=== PATIENT | male | born 1955 | race Caucasian/White ===

== ENCOUNTER 2018-06-17 18:48 | Inpatient (IN) | payer BC ==
[~2018-06-17] VITALS: Ht 182.9 cm; Wt 108.5 kg
[2018-06-17] MEDS ORDERED: ACETAMINOPHEN 500 MG TABLET PO ONE (19:00)
[2018-06-17] MEDS ORDERED: SODIUM CHLORIDE FLUSH 10ML SYR IVF ONE (19:00)
[2018-06-17] MEDS ORDERED: ACETAMINOPHEN 500 MG TABLET ONE (19:16)
[2018-06-17] MEDS ORDERED: SODIUM CHLORIDE 0.9% 1,000ML IVBOLUS ONE ×2 (19:30→21:30)
[2018-06-17 19:36] LABS: BASOPHILS # (AUTO) 0.01 x10^3/uL (0-0.1); BASOPHILS % (AUTO) 0 % (0-1); EOSINOPHILS # (AUTO) 0.02 x10^3/uL (0-0.4); EOSINOPHILS % (AUTO) 0 % (1-7); LYMPHOCYTES # (AUTO) 0.25 x10^3/uL (1-3.4); LYMPHOCYTES % (AUTO) 3 % (22-44); MD NO; MEAN CORPUSCULAR HEMOGLOBIN 30.1 pg (27.5-34.5); MEAN CORPUSCULAR HGB CONC 34.1 g/dL (33.2-36.2); MEAN CORPUSCULAR VOLUME 88.3 fL (81-97); MEAN PLATELET VOLUME 8.3 fL (7.4-10.4); MONOCYTES # (AUTO) 0.61 x10^3/uL (0.2-0.8); MONOCYTES % (AUTO) 6 % (2-9); NEUTROPHILS # (AUTO) 9.08 x10^3/uL (1.8-6.8); NEUTROPHILS % (AUTO) 91 % (42-75); PLATELET COUNT 249 x10^3/uL (130-400); RED BLOOD COUNT 4.92 x10^6/uL (4.38-5.82); RED CELL DISTRIBUTION WIDTH 13.5 % (9.4-14.8)
[2018-06-17 19:44] LABS: ALBUMIN 3.7 g/dL (3.4-5.0); ANION GAP 11 mmol/L (5-15); CHLORIDE 107 mmol/L (98-107)
[2018-06-17 19:48] LABS: ALANINE AMINOTRANSFERASE 32 U/L (12-78); ALKALINE PHOSPHATASE 57 U/L (45-117); BILIRUBIN,TOTAL 0.6 mg/dL (0.2-1.0); CREATININE 1.62 mg/dL (0.7-1.3)
[2018-06-17] MEDS ORDERED: ONDANSETRON 2MG/ML, 2ML ONE (20:22)
[2018-06-17] MEDS ORDERED: MORPHINE SULFATE 4 MG/ML, 1ML ONE (20:22)
[2018-06-17] MEDS ORDERED: ONDANSETRON 2MG/ML, 2ML IVPush ONE (20:30)
[2018-06-17] MEDS ORDERED: MORPHINE SULFATE 4 MG/ML, 1ML IVPush ONE (20:30)
[2018-06-17 20:42] LABS: RAPID INFLUENZA A Negative (Negative); RAPID INFLUENZA B Negative (Negative)
[2018-06-17 21:24] LABS: MICROSCOPIC INDICATED
[2018-06-17] MEDS ORDERED: CEFTRIAXONE PMX 1GM/50ML 50 ML IV ONE (21:30)
[2018-06-17] MEDS ORDERED: CEFTRIAXONE PMX 1GM/50ML 50 ML ONE (21:32)
[2018-06-17 21:37] LABS: CULTURE INDICATED? NO
[2018-06-17] MEDS ORDERED: HYDR-3245 PO (21:43)
[2018-06-17] MEDS ORDERED: ONDA4TAB7 PO (21:43)
[2018-06-17] MEDS ORDERED: METH750T87 PO (21:43)
[2018-06-17] MEDS ORDERED: OMEP10CA4 PO (21:43)
[2018-06-17] MEDS ORDERED: CEPH-376 PO (21:43)
[2018-06-17] MEDS ORDERED: TELM40TA PO (21:43)
[2018-06-17] MEDS ORDERED: FEXO1TAB29 PO (21:43)
[2018-06-17] MEDS ORDERED: METHOCARBAMOL 1,000 MG in DEXTROSE 5% 100 ML IV ONE (23:00)
[2018-06-17 23:11] VITALS: BP 126/71
[2018-06-18] MEDS ORDERED: LORATADINE/PSE 5/120MG TAB.ER.12H PO PRN (00:30)
[2018-06-18] MEDS ORDERED: LIDODERM 5% PATCH TD PRN (00:30)
[2018-06-18] MEDS ORDERED: hydrALAzine 20 MG/ML, 1ML IVPush PRN (00:30)
[2018-06-18] MEDS ORDERED: ONDANSETRON 2MG/ML, 2ML IVPush PRN (00:30)
[2018-06-18] MEDS: SODIUM CHLORIDE 0.9% 1,000 ML IV SCH ×3 (00:49→19:40)
[2018-06-18 01:45] VITALS: BP 121/86
[2018-06-18] MEDS: HEPARIN 5,000 UNITS/ML, 1ML SQ SCH ×3 (01:48→16:16)
[2018-06-18] MEDS: HYDROcodone/APAP 5/325 TABLET PO PRN ×4 (02:32→20:39)
[2018-06-18 07:50] VITALS: BP 117/67
[2018-06-18] MEDS: VALSARTAN 80 MG TABLET PO SCH (08:55)
[2018-06-18] MEDS: CEFTRIAXONE PMX 1GM/50ML 50 ML IV SCH ×2 (08:55→21:30)
[2018-06-18] MEDS: AZITHROMYCIN 500 MG in SODIUM CHLORIDE 0.9% 250 ML IV SCH (09:59)
[2018-06-18 13:58] VITALS: BP 108/67
[2018-06-18] MEDS: METHOCARBAMOL 750 MG TABLET PO PRN ×2 (14:48→20:38)
[2018-06-18] MEDS: SCOPOLAMINE PATCH, 1.5MG PATCH.TD72 TD SCH (15:00)
[2018-06-18] MEDS: morphine SULFATE 10 MG/ML, 1ML IVPush PRN (16:16)
[2018-06-18 19:06] VITALS: BP 146/75
[2018-06-18 21:36] VITALS: BP 108/65
[2018-06-18] MEDS ORDERED: ACETAMINOPHEN 500 MG TABLET PO ONE (22:00)
[2018-06-19] MEDS: HEPARIN 5,000 UNITS/ML, 1ML SQ SCH ×3 (00:30→17:54)
[2018-06-19 02:33] VITALS: BP 127/84
[2018-06-19] MEDS: SODIUM CHLORIDE 0.9% 1,000 ML IV SCH ×2 (02:45→09:45)
[2018-06-19] MEDS: HYDROcodone/APAP 5/325 TABLET PO PRN ×3 (02:46→22:58)
[2018-06-19 05:30] LABS: ALBUMIN 2.6 g/dL (3.4-5.0); ANION GAP 10 mmol/L (5-15); CALCIUM 6.7 mg/dL (8.5-10.1); CHLORIDE 106 mmol/L (98-107)
[2018-06-19 05:34] LABS: ALANINE AMINOTRANSFERASE 19 U/L (12-78); ALKALINE PHOSPHATASE 42 U/L (45-117); BILIRUBIN,TOTAL 0.6 mg/dL (0.2-1.0); CREATININE 1.08 mg/dL (0.7-1.3); TOTAL PROTEIN 5.5 g/dL (6.4-8.2)
[2018-06-19 05:40] LABS: BASOPHILS # (AUTO) 0.05 x10^3/uL (0-0.1); BASOPHILS % (AUTO) 1 % (0-1); EOSINOPHILS # (AUTO) 0.08 x10^3/uL (0-0.4); EOSINOPHILS % (AUTO) 1 % (1-7); LYMPHOCYTES # (AUTO) 0.96 x10^3/uL (1-3.4); LYMPHOCYTES % (AUTO) 13 % (22-44); MD NO; MEAN CORPUSCULAR HEMOGLOBIN 30.8 pg (27.5-34.5); MEAN CORPUSCULAR VOLUME 88.1 fL (81-97); MEAN PLATELET VOLUME 7.9 fL (7.4-10.4); MONOCYTES % (AUTO) 10 % (2-9); NEUTROPHILS # (AUTO) 5.47 x10^3/uL (1.8-6.8); NEUTROPHILS % (AUTO) 75 % (42-75); PLATELET COUNT 168 x10^3/uL (130-400); RED BLOOD COUNT 3.71 x10^6/uL (4.38-5.82); RED CELL DISTRIBUTION WIDTH 13.2 % (9.4-14.8)
[2018-06-19 07:08] VITALS: BP 109/59
[2018-06-19] MEDS: CEFTRIAXONE PMX 1GM/50ML 50 ML IV SCH (09:43)
[2018-06-19] MEDS: VALSARTAN 80 MG TABLET PO SCH (09:44)
[2018-06-19] MEDS: METHOCARBAMOL 750 MG TABLET PO SCH ×2 (10:44→17:54)
[2018-06-19] MEDS: AZITHROMYCIN 500 MG in SODIUM CHLORIDE 0.9% 250 ML IV SCH (10:45)
[2018-06-19 13:27] VITALS: BP 144/78
[2018-06-19] MEDS ORDERED: VANCOMYCIN PMX 1GM/200ML 200 ML IV ONE (13:30)
[2018-06-19] MEDS ORDERED: VANCOMYCIN PER PHARMACY MC PRN (13:30)
[2018-06-19] MEDS ORDERED: MAGNESIUM SULFATE PMX 2GM/50ML 50 ML IV ONE (13:30)
[2018-06-19] MEDS ORDERED: POTASSIUM PHOSPHATE 44 MEQ in SODIUM CHLORIDE 0.9% 500 ML IV SCH ×2 (13:30→14:00)
[2018-06-19] MEDS ORDERED: PHARMACOKINETIC MONITORING MC PRN (14:00)
[2018-06-19] MEDS ORDERED: SODIUM CHLORIDE 0.45% IV SCH (14:00)
[2018-06-19] MEDS ORDERED: POTASSIUM PHOSPHATE IV SCH (14:00)
[2018-06-19] MEDS ORDERED: LORazepam 2 MG/ML, 1ML IVPush ONE (14:30)
[2018-06-19] MEDS: CEFEPIME 2 GM in DEXTROSE 5% 100 ML IV SCH ×2 (14:51→22:58)
[2018-06-19] MEDS ORDERED: GADOBUTROL 15 MMOL/15 ML VIAL ONE (17:16)
[2018-06-19] MEDS: morphine SULFATE 10 MG/ML, 1ML IVPush PRN (17:53)
[2018-06-19] MEDS: VANCOMYCIN 1,800 MG in SODIUM CHLORIDE 0.9% 250 ML IV SCH (17:54)
[2018-06-19] MEDS ORDERED: POTASSIUM PHOSPHATE IV ONE (20:00)
[2018-06-19] MEDS ORDERED: SODIUM CHLORIDE 0.45% IV ONE (20:00)
[2018-06-19 20:03] VITALS: BP 154/84
[2018-06-20] MEDS: METHOCARBAMOL 750 MG TABLET PO SCH ×4 (01:51→19:27)
[2018-06-20] MEDS: SODIUM CHLORIDE 0.9% 1,000 ML IV SCH ×4 (01:56→17:20)
[2018-06-20 01:59] VITALS: BP 118/69
[2018-06-20] MEDS: morphine SULFATE 10 MG/ML, 1ML IVPush PRN ×2 (04:23→07:56)
[2018-06-20 05:23] LABS: BASOPHILS # (AUTO) 0.02 x10^3/uL (0-0.1); BASOPHILS % (AUTO) 0 % (0-1); EOSINOPHILS # (AUTO) 0.06 x10^3/uL (0-0.4); EOSINOPHILS % (AUTO) 1 % (1-7); LYMPHOCYTES % (AUTO) 15 % (22-44); MD NO; MEAN CORPUSCULAR HEMOGLOBIN 30.3 pg (27.5-34.5); MEAN CORPUSCULAR HGB CONC 34.2 g/dL (33.2-36.2); MEAN CORPUSCULAR VOLUME 88.7 fL (81-97); MEAN PLATELET VOLUME 8.1 fL (7.4-10.4); MONOCYTES % (AUTO) 9 % (2-9); NEUTROPHILS # (AUTO) 4.98 x10^3/uL (1.8-6.8); NEUTROPHILS % (AUTO) 75 % (42-75); PLATELET COUNT 176 x10^3/uL (130-400); RED BLOOD COUNT 3.93 x10^6/uL (4.38-5.82); RED CELL DISTRIBUTION WIDTH 13.5 % (9.4-14.8)
[2018-06-20] MEDS ORDERED: SODIUM CHLORIDE 0.45% IV ONE (05:30)
[2018-06-20] MEDS ORDERED: POTASSIUM PHOSPHATE IV ONE (05:30)
[2018-06-20 05:37] LABS: ALBUMIN 2.6 g/dL (3.4-5.0); ANION GAP 9 mmol/L (5-15); CALCIUM 7.1 mg/dL (8.5-10.1); CHLORIDE 105 mmol/L (98-107)
[2018-06-20 05:40] LABS: ALANINE AMINOTRANSFERASE 25 U/L (12-78); ALKALINE PHOSPHATASE 43 U/L (45-117); BILIRUBIN,TOTAL 0.6 mg/dL (0.2-1.0); CREATININE 1.01 mg/dL (0.7-1.3); TOTAL PROTEIN 5.7 g/dL (6.4-8.2)
[2018-06-20 07:20] VITALS: BP 131/75
[2018-06-20] MEDS: CEFEPIME 2 GM in DEXTROSE 5% 100 ML IV SCH ×3 (07:26→22:56)
[2018-06-20] MEDS ORDERED: BUPIVACAINE/PF 0.5% ONE (08:20)
[2018-06-20] MEDS ORDERED: THROMBIN 20,000 UNIT VIAL TP ONE ×2 (08:21→10:44)
[2018-06-20] MEDS ORDERED: BACITRACIN OINT 500U/GM, 15 GM ONE (08:21)
[2018-06-20] MEDS ORDERED: EPINEPHRINE 1 MG/ML, 1ML ONE (08:21)
[2018-06-20] MEDS: VANCOMYCIN 1,800 MG in SODIUM CHLORIDE 0.9% 250 ML IV SCH (08:30)
[2018-06-20] MEDS: VALSARTAN 80 MG TABLET PO SCH (09:00)
[2018-06-20] MEDS ORDERED: FENTANYL PF 250 MCG/5ML ONE (09:30)
[2018-06-20] MEDS ORDERED: MIDAZOLAM 1 MG/ML, 2ML ONE (09:30)
[2018-06-20] MEDS ORDERED: FENTANYL PF 100 MCG/2ML ONE (10:41)
[2018-06-20] MEDS ORDERED: BUPIVACAINE 0.25% ONE (10:41)
[2018-06-20] MEDS ORDERED: BUPIVACAINE/PF 0.25% EPIDPUSH ONE (10:45)
[2018-06-20] MEDS ORDERED: BUPIVACAINE/PF-EPI 0.5% 1:200K INFIL ONE (10:45)
[2018-06-20] MEDS ORDERED: FENTANYL PF 100 MCG/2ML EPIDPUSH ONE (10:45)
[2018-06-20] MEDS ORDERED: PROPOFOL 10 MG/ML, 50ML ONE (10:51)
[2018-06-20] MEDS ORDERED: SUCCINYLCHOLINE 20 MG/ML, 10ML ONE (10:51)
[2018-06-20] MEDS ORDERED: DEXAMETHASONE 4 MG/ML, 1ML ONE (10:51)
[2018-06-20] MEDS ORDERED: ROCURONIUM 10MG/ML,5ML ONE (10:51)
[2018-06-20] MEDS ORDERED: ONDANSETRON 2MG/ML, 2ML ONE (10:51)
[2018-06-20] MEDS ORDERED: PROPOFOL 10 MG/ML, 20ML ONE (10:51)
[2018-06-20] MEDS ORDERED: EPHEDRINE 50 MG/ML, 1ML IVPush PRN (11:00)
[2018-06-20] MEDS ORDERED: PROMETHAZINE 25 MG/ML, 1ML IV PRN (11:00)
[2018-06-20] MEDS ORDERED: LABETALOL 5MG/ML, 20ML IV PRN (11:00)
[2018-06-20] MEDS ORDERED: OXYcodone 5 MG/5 ML ORAL.SOL UDC PO PRN (11:00)
[2018-06-20] MEDS ORDERED: ONDANSETRON ODT 8 MG PO PRN (11:00)
[2018-06-20] MEDS ORDERED: PROCHLORPERAZINE 5 MG/ML, 2ML IV PRN (11:00)
[2018-06-20] MEDS ORDERED: EPHEDRINE 50 MG/ML, 1ML IM PRN (11:00)
[2018-06-20] MEDS ORDERED: FENTANYL PF 100 MCG/2ML IV PRN (11:00)
[2018-06-20] MEDS ORDERED: MORPHINE SULFATE 4 MG/ML, 1ML IVPush PRN (11:00)
[2018-06-20] MEDS ORDERED: MEPERIDINE/PF 25MG/0.5ML IVPush PRN (11:00)
[2018-06-20] MEDS ORDERED: PROMETHAZINE 12.5 MG SUPP PR PRN (11:00)
[2018-06-20] MEDS ORDERED: DIPHENHYDRAMINE 50 MG/ML, 1ML IVPush PRN (11:00)
[2018-06-20] MEDS ORDERED: PROMETHAZINE 25 MG SUPP PR PRN (11:00)
[2018-06-20] MEDS ORDERED: ONDANSETRON 2MG/ML, 2ML IV PRN (11:00)
[2018-06-20] MEDS ORDERED: MIDAZOLAM 1 MG/ML, 2ML IV PRN (11:00)
[2018-06-20] MEDS ORDERED: EPHEDRINE 50 MG/ML, 1ML ONE (11:29)
[2018-06-20] MEDS ORDERED: PHARMACY MAY ADJ FOR RENAL FX MC PRN (11:30)
[2018-06-20] MEDS ORDERED: ONDANSETRON 4 MG TABLET PO PRN (11:30)
[2018-06-20] MEDS ORDERED: BISACODYL 10 MG SUPP PR PRN (11:30)
[2018-06-20] MEDS ORDERED: HYDROcodone/APAP 10/325 MG TABLET PO PRN (11:30)
[2018-06-20] MEDS ORDERED: EPHEDRINE 50 MG/ML, 1ML IVPush ONE (11:30)
[2018-06-20] MEDS ORDERED: SENNA/DOCUSATE TABLET PO PRN (11:30)
[2018-06-20] MEDS ORDERED: HYDROcodone/APAP 5/325 TABLET PO PRN (11:30)
[2018-06-20] MEDS ORDERED: CEFAZOLIN PMX 1GM/50ML 50 ML IVPB SCH (11:30)
[2018-06-20 12:32] VITALS: BP 120/71
[2018-06-20] MEDS: NS + 20MEQ KCL 1,000 ML IV SCH ×2 (12:35→22:56)
[2018-06-20 14:22] VITALS: BP 120/77
[2018-06-20] MEDS ORDERED: METHOCARBAMOL 750 MG PO SCH (16:00)
[2018-06-20] MEDS: OXYcodone/APAP 5/325MG TABLET PO PRN ×2 (16:21→21:24)
[2018-06-20 18:59] VITALS: BP 133/69
[2018-06-20] MEDS: SODIUM CHLORIDE FLUSH 10ML SYR IVF SCH (21:00)
[2018-06-21 00:22] VITALS: BP 114/66
[2018-06-21] MEDS: SODIUM CHLORIDE 0.9% 1,000 ML IV SCH ×5 (00:39→23:31)
[2018-06-21] MEDS: VANCOMYCIN 1,800 MG in SODIUM CHLORIDE 0.9% 250 ML IV SCH ×2 (02:04→20:24)
[2018-06-21] MEDS: METHOCARBAMOL 750 MG TABLET PO SCH ×4 (02:04→20:24)
[2018-06-21 04:18] VITALS: BP 127/76
[2018-06-21 05:07] LABS: ALANINE AMINOTRANSFERASE 45 U/L (12-78); ALBUMIN 2.5 g/dL (3.4-5.0); ANION GAP 9 mmol/L (5-15); CALCIUM 7.4 mg/dL (8.5-10.1); CHLORIDE 110 mmol/L (98-107); CREATININE 1.03 mg/dL (0.7-1.3)
[2018-06-21 05:08] LABS: BASOPHILS # (AUTO) 0.02 x10^3/uL (0-0.1); BASOPHILS % (AUTO) 0 % (0-1); EOSINOPHILS # (AUTO) 0.02 x10^3/uL (0-0.4); EOSINOPHILS % (AUTO) 0 % (1-7); LYMPHOCYTES # (AUTO) 1.11 x10^3/uL (1-3.4); LYMPHOCYTES % (AUTO) 14 % (22-44); MD NO; MEAN CORPUSCULAR HEMOGLOBIN 29.9 pg (27.5-34.5); MEAN CORPUSCULAR HGB CONC 33.7 g/dL (33.2-36.2); MEAN CORPUSCULAR VOLUME 88.8 fL (81-97); MEAN PLATELET VOLUME 8.1 fL (7.4-10.4); MONOCYTES % (AUTO) 9 % (2-9); NEUTROPHILS # (AUTO) 6.41 x10^3/uL (1.8-6.8); NEUTROPHILS % (AUTO) 78 % (42-75); PLATELET COUNT 210 x10^3/uL (130-400); RED CELL DISTRIBUTION WIDTH 13.4 % (9.4-14.8)
[2018-06-21 05:09] LABS: ALKALINE PHOSPHATASE 49 U/L (45-117); BILIRUBIN,TOTAL 0.6 mg/dL (0.2-1.0); TOTAL PROTEIN 6.1 g/dL (6.4-8.2)
[2018-06-21] MEDS: OXYcodone/APAP 5/325MG TABLET PO PRN ×4 (05:12→20:27)
[2018-06-21] MEDS: CEFEPIME 2 GM in DEXTROSE 5% 100 ML IV SCH ×3 (06:12→22:36)
[2018-06-21 07:15] VITALS: BP 121/73
[2018-06-21] MEDS: VALSARTAN 80 MG TABLET PO SCH (08:37)
[2018-06-21] MEDS: SODIUM CHLORIDE FLUSH 10ML SYR IVF SCH ×2 (08:37→20:27)
[2018-06-21] MEDS: NS + 20MEQ KCL 1,000 ML IV SCH ×2 (12:00→22:00)
[2018-06-21 12:07] VITALS: BP 142/81
[2018-06-21] MEDS: SCOPOLAMINE PATCH, 1.5MG PATCH.TD72 TD SCH (14:21)
[2018-06-21 20:02] VITALS: BP 119/79
[2018-06-22] MEDS: OXYcodone/APAP 5/325MG TABLET PO PRN ×5 (00:22→20:13)
[2018-06-22] MEDS: morphine SULFATE 10 MG/ML, 1ML IVPush PRN ×4 (00:23→23:27)
[2018-06-22 01:39] VITALS: BP 154/77
[2018-06-22] MEDS: METHOCARBAMOL 750 MG TABLET PO SCH ×2 (01:54→08:00)
[2018-06-22] MEDS: SODIUM CHLORIDE 0.9% 1,000 ML IV SCH (05:14)
[2018-06-22 05:38] LABS: HCT (SEDRATE) 36.5 % (39.2-51.8)
[2018-06-22] MEDS: CEFEPIME 2 GM in DEXTROSE 5% 100 ML IV SCH (06:01)
[2018-06-22] MEDS: NS + 20MEQ KCL 1,000 ML IV SCH ×2 (08:00→16:52)
[2018-06-22 08:30] LABS: ANION GAP 8 mmol/L (5-15); CALCIUM 7.5 mg/dL (8.5-10.1); CHLORIDE 109 mmol/L (98-107); CREATININE 1.06 mg/dL (0.7-1.3)
[2018-06-22] MEDS: METHOCARBAMOL 750 MG in DEXTROSE 5% 100 ML IV SCH ×3 (08:52→21:10)
[2018-06-22] MEDS: VALSARTAN 80 MG TABLET PO SCH (08:53)
[2018-06-22] MEDS: SODIUM CHLORIDE FLUSH 10ML SYR IVF SCH ×2 (08:53→21:10)
[2018-06-22] MEDS: NORTRIPTYLINE 10 MG CAPSULE PO SCH ×2 (08:53→20:13)
[2018-06-22 08:56] LABS: BASOPHILS # (AUTO) 0.04 x10^3/uL (0-0.1); BASOPHILS % (AUTO) 1 % (0-1); EOSINOPHILS # (AUTO) 0.18 x10^3/uL (0-0.4); EOSINOPHILS % (AUTO) 3 % (1-7); LYMPHOCYTES # (AUTO) 1.37 x10^3/uL (1-3.4); LYMPHOCYTES % (AUTO) 21 % (22-44); MD NO; MEAN CORPUSCULAR HEMOGLOBIN 29.6 pg (27.5-34.5); MEAN CORPUSCULAR HGB CONC 33.6 g/dL (33.2-36.2); MEAN CORPUSCULAR VOLUME 88.2 fL (81-97); MEAN PLATELET VOLUME 8.3 fL (7.4-10.4); MONOCYTES # (AUTO) 0.57 x10^3/uL (0.2-0.8); MONOCYTES % (AUTO) 9 % (2-9); NEUTROPHILS # (AUTO) 4.29 x10^3/uL (1.8-6.8); NEUTROPHILS % (AUTO) 67 % (42-75); PLATELET COUNT 237 x10^3/uL (130-400); RED BLOOD COUNT 4.13 x10^6/uL (4.38-5.82)
[2018-06-22 08:57] VITALS: BP 145/83
[2018-06-22] MEDS ORDERED: VANCOMYCIN 2,000 MG in SODIUM CHLORIDE 0.9% 500 ML IV SCH (10:00)
[2018-06-22 10:48] LABS: MICROSCOPIC NOT IND
[2018-06-22 14:14] VITALS: BP 106/55
[2018-06-22] MEDS ORDERED: SULF-169 PO (15:50)
[2018-06-22] MEDS ORDERED: LACT1TAB13 PO (15:50)
[2018-06-22] MEDS ORDERED: METH750T2 PO (15:50)
[2018-06-22] MEDS: OMEPRAZOLE 10 MG CAPSULE.DR PO SCH (15:54)
[2018-06-22 19:31] VITALS: BP 149/78
[2018-06-22] MEDS: SULFAMETH./TRIMETHOPRIM DS 800MG/160MG TABLET PO SCH (20:13)
[2018-06-23] MEDS: OXYcodone/APAP 5/325MG TABLET PO PRN ×3 (00:23→12:21)
[2018-06-23] MEDS: DIAZEPAM 5 MG/ML, 10ML VIAL IV ONE ×2 (00:59→01:31)
[2018-06-23 01:44] VITALS: BP 129/72
[2018-06-23] MEDS ORDERED: DIAZEPAM 5 MG/ML, 2ML IVPush ONE (02:00)
[2018-06-23] MEDS: NS + 20MEQ KCL 1,000 ML IV SCH (04:00)
[2018-06-23] MEDS: METHOCARBAMOL 750 MG in DEXTROSE 5% 100 ML IV SCH (04:20)
[2018-06-23] MEDS: OMEPRAZOLE 10 MG CAPSULE.DR PO SCH (04:45)
[2018-06-23 05:14] LABS: BASOPHILS # (AUTO) 0.11 x10^3/uL (0-0.1); BASOPHILS % (AUTO) 2 % (0-1); EOSINOPHILS # (AUTO) 0.31 x10^3/uL (0-0.4); EOSINOPHILS % (AUTO) 5 % (1-7); LYMPHOCYTES # (AUTO) 1.23 x10^3/uL (1-3.4); LYMPHOCYTES % (AUTO) 19 % (22-44); MD NO; MEAN CORPUSCULAR HGB CONC 33.9 g/dL (33.2-36.2); MEAN CORPUSCULAR VOLUME 88.5 fL (81-97); MEAN PLATELET VOLUME 7.4 fL (7.4-10.4); MONOCYTES # (AUTO) 0.43 x10^3/uL (0.2-0.8); MONOCYTES % (AUTO) 7 % (2-9); NEUTROPHILS # (AUTO) 4.47 x10^3/uL (1.8-6.8); NEUTROPHILS % (AUTO) 68 % (42-75); PLATELET COUNT 294 x10^3/uL (130-400); RED BLOOD COUNT 4.33 x10^6/uL (4.38-5.82); RED CELL DISTRIBUTION WIDTH 13.4 % (9.4-14.8)
[2018-06-23 05:23] LABS: CHLORIDE 106 mmol/L (98-107)
[2018-06-23 05:33] LABS: ANION GAP 9 mmol/L (5-15); CALCIUM 7.9 mg/dL (8.5-10.1); CREATININE 1.07 mg/dL (0.7-1.3)
[2018-06-23 08:10] VITALS: BP 136/77
[2018-06-23] MEDS ORDERED: DIAZ2TAB PO (08:22)
[2018-06-23] MEDS ORDERED: METHOCARBAMOL 750 MG TABLET PO PRN (08:30)
[2018-06-23] MEDS: SODIUM CHLORIDE FLUSH 10ML SYR IVF SCH (09:00)
[2018-06-23] MEDS: NORTRIPTYLINE 10 MG CAPSULE PO SCH (09:00)
[2018-06-23] MEDS: VALSARTAN 80 MG TABLET PO SCH (09:21)
[2018-06-23] MEDS: SULFAMETH./TRIMETHOPRIM DS 800MG/160MG TABLET PO SCH (09:21)
[2018-06-23] MEDS ORDERED: SULF1TAB24 PO (09:59)
[2018-06-23] MEDS ORDERED: OXYC-302 PO (10:04)
== END 2018-06-23 12:56 | disposition home or self-care (01) | DRG 907 ==
LOC: ED 19:48 → EDIP 22:12 → 3NE 23:05 → 4NOR 06-20 12:30 → DCLOUNGE 06-23 12:35
PROVIDERS: ADMIT Hospitalist; ATTEND Hospitalist
PROC: 00NY0ZZ Release Lumbar Spinal Cord, Open Approach (ICD-10-PCS; 2018-06-20)
PROC: 0SC00ZZ Extirpation of Matter from Lumbar Vertebral Joint, Open Approach (ICD-10-PCS; 2018-06-20)
PROC: 4A11X4G Monitoring of Peripheral Nervous Electrical Activity, Intraoperative, External Approach (ICD-10-PCS; 2018-06-20)
PROC: 01NB0ZZ Release Lumbar Nerve, Open Approach (ICD-10-PCS; principal; 2018-06-20 09:30)
DX: M96.841 Postprocedural hematoma of a musculoskeletal structure following other procedure (principal); N17.0 Acute kidney failure with tubular necrosis; R65.11 Systemic inflammatory response syndrome (SIRS) of non-infectious origin with acute organ dysfunction; E87.2 Acidosis; R50.82 Postprocedural fever; M48.062 Spinal stenosis, lumbar region with neurogenic claudication; M48.04 Spinal stenosis, thoracic region; R31.9 Hematuria, unspecified; Y83.9 Surgical procedure, unspecified as the cause of abnormal reaction of the patient, or of later complication, without mention of misadventure at the time of the procedure; I10 Essential (primary) hypertension; G47.33 Obstructive sleep apnea (adult) (pediatric); X58.XXXA Exposure to other specified factors, initial encounter; G62.9 Polyneuropathy, unspecified; Z80.1 Family history of malignant neoplasm of trachea, bronchus and lung; Z82.5 Family history of asthma and other chronic lower respiratory diseases; Z90.49 Acquired absence of other specified parts of digestive tract; Z85.828 Personal history of other malignant neoplasm of skin; Y93.89 Activity, other specified; Y92.89 Other specified places as the place of occurrence of the external cause; Y99.8 Other external cause status
CPT/HCPCS: 36415; 71045; 72157; 72158; 78582; 80048; 80053; 80202; 81001; 81003; 83605; 83735; 84100; 85025; 85651; 86140; 87040; 87070; 87081; 87205; 87400; 87880; 93005; 96361; 96365; 96375; A9585; G0378; J0171; J0456; J0696; J1100; J1644; J2250; J2405; J2704; J3010; J3360; J3370; J3480; J3490; A9540; A9558; C9898; J0330; J2060; J2270; J2800; J3475; J7030; J7040; J7050